=== PATIENT | male | born 1960 | race Caucasian/White ===

== ENCOUNTER 2022-08-09 13:47 | Outpatient (CLI) | payer BC, SELFPAY ==
--- NOTE | ~2022-08-09 | XR_ITS ---
EXAMINATION: XR chest 2V DATE: 08/09/2022 14:15 INDICATION: Pedal edema, cough, shortness of breath TECHNIQUE: PA and lateral views of the chest are obtained. COMPARISON: None available FINDINGS: There are minimal airspace opacities of the lung bases. No pleural effusion or pneumothorax . The cardiomediastinal silhouette is normal. There is mild thoracic spondylosis. IMPRESSION: 1. Minimal bibasilar airspace opacity, consistent with atelectasis versus pneumonia. Reviewed, dictated and finalized at location A. IMPRESSION: 1. Minimal bibasilar airspace opacity, consistent with atelectasis versus pneum onia.
[2022-08-09 14:05] LABS: Basophils Absolute Auto 0.05 K/mm3 (0.00-0.10); Basophils Percent Auto 0.5 % (0.0-1.0); Eosinophils Absolute Auto 0.23 K/mm3 (0.02-0.50); Eosinophils Percent Auto 2.3 % (1.0-6.0); Hematocrit 39.4 % (40.0-54.0); Hemoglobin 12.6 g/dL (14.0-18.0); Lymphocytes Absolute Auto 1.26 K/mm3 (1.10-4.50); Lymphocytes Percent Auto 12.8 % (18.0-42.0); Mean Corpuscular Hemoglobin 29.9 pg (27.0-31.0); Mean Corpuscular Volume 93.4 fL (78.0-102.0); Mean Platelet Volume 8.7 fl (8.7-11.0); Monocytes Percent Auto 11.2 % (2.0-11.0); Neutrophils Absolute Auto 7.1 K/mm3 (1.7-7.2); Neutrophils Percent Auto 72.2 % (50.0-70.0); Platelet Count Result 355 K/mm3 (150-420); Red Blood Count 4.22 M/mm3 (4.70-6.10); Red Cell Distribution Width 12.3 % (11.6-14.4); White Blood Count 9.9 K/mm3 (4.8-10.8)
[2022-08-09 14:27] LABS: Alanine Aminotransferase 31 U/L (16-63); Albumin Level 3.2 g/dL (3.4-5.0); Alkaline Phosphatase 81 U/L (46-116); Anion Gap 4 mmol/L (8-16); Aspartate Amino Transferase 13 U/L (15-37); Bilirubin,Total 0.2 mg/dL (0.00-1.00); Blood Urea Nitrogen 20 mg/dL (7-18); Calcium 8.8 mg/dL (8.5-10.1); Carbon Dioxide 31 mmol/L (21-32); Chloride 104 mmol/L (98-108); Estimated Glomerular Filt Rate > 60; Glucose 99 mg/dL (70-99); NT Pro B Type Natriuretic Pept 85 pg/mL (0-125); Osmolality Calculated 290 mOsm/kg (285-295); Potassium 3.9 mmol/L (3.5-5.1); Sodium 139 mmol/L (136-145); Total Protein 7.5 g/dL (6.4-8.2)
== END 2022-08-09 13:48 | disposition home or self-care (01) ==
PROVIDERS: PCP Internal Medicine; Visit Provider Internal Medicine
DX: R60.9 Edema, unspecified (principal); J18.9 Pneumonia, unspecified organism
CPT/HCPCS: 36415; 71046; 80053; 83880; 85025; 85380

== ENCOUNTER 2022-08-29 10:19 | Outpatient (CLI) | payer BC, SELFPAY ==
--- NOTE | ~2022-08-29 | XR_ITS ---
XR chest 2V DATE: 08/29/2022 11:08 INDICATION: Pneumonia follow-up TECHNIQUE: 2 views COMPARISON: 08/09/2022 2 view chest FINDINGS: Normal heart size. No hilar or mediastinal enlargement. Again noted is minimal infiltrate or atelectasis at the lung bases, stable since 08/09/2022. The lung s otherwise appear clear. No pleural effusion or pulmonary vascular congestion or pneumothorax. IMPRESSION: Minimal infiltrate or atelectasis at the lung bases, with little interval change since Reviewed, dictated and finalized at location A. IMPRESSION: Minimal infiltrate or atelectasis at the lung bases, with little in terval change since 08/09/2022
== END 2022-08-29 10:20 | disposition home or self-care (01) ==
LOC: CHSIMG 10:23
PROVIDERS: PCP Internal Medicine; Visit Provider Internal Medicine
DX: J18.9 Pneumonia, unspecified organism (principal)
CPT/HCPCS: 71046

== ENCOUNTER 2022-09-05 14:41 | Outpatient (CLI) | payer BC, SELFPAY ==
--- NOTE | ~2022-09-05 | XR_ITS ---
EXAMINATION: XR chest 2V Exam Date/Time: 09/05/2022 15:00 DOUGHNUT BATTER MIXER HISTORY: cough Comparison: 08/29/2022, 08/09/2022, 10/17/2014. RESULT: Lines, tubes, and devices: None. Lungs and pleura: Chronic streaky bilateral lower lung opacities, likely representing scar/atelectas is. No focal consolidation. Cardiomediastinal silhouette: Stable. Other: No acute osseous or upper abdominal finding. IMPRESSION: No acute cardiopulmonary process. Reviewed, dictated and finalized at location K. HNUT BATTER MIXER
== END 2022-09-05 14:42 | disposition home or self-care (01) ==
PROVIDERS: PCP Internal Medicine; Visit Provider Internal Medicine
DX: R05.9 Cough, unspecified (principal)
CPT/HCPCS: 71046

== ENCOUNTER 2022-09-07 10:43 | Outpatient (CLI) | payer BC, SELFPAY ==
--- NOTE | ~2022-09-07 | CT_ITS ---
EXAMINATION: CT diagnostic chest w con DATE: 09/07/2022 11:14 INDICATION: Cough, abnormal chest x-ray TECHNIQUE: Transaxial computed tomographic images of the chest were obtained after the administration of 75 cc of Omnipaque 350 intravenous contrast. The dose-length product (DLP) was 304.70 mGy-cm. Ite rative reconstruction was used. COMPARISON: 09/05/2022 FINDINGS: There are patchy airspace opacities of the lingula, right upper lobe, and bilateral lower l obes. No pleural effusion or pneumothorax. There are a few scattered small nodules of the lungs which measure up to 3 mm. No pathologically enlarged thoracic lymph nodes are identified. The heart size i s normal. There is moderate thoracic spondylosis. IMPRESSION: 1. Patchy airspace opacities of the lungs, consistent with mild multifocal pneumonia. 2. Small pulmonary nodules measuring up to 3 mm, likely old granulomatous disease. If the patient has no risk factors for malignancy, no further follow up is required. If there are risk factors for mal ignancy (i.e., history of smoking, asbestos or radiation exposure), consider followup CT in 12 months . Reviewed, dictated and finalized at location B. S WASHER AND CARRIER IMPRESSION: 1. Patchy airspace opacities of the lungs, consistent with mild multifocal pneu monia. 2. Small pulmonary nodules measuring up to 3 mm, likely old granulomatous disea se. If the patient has no risk factors for malignancy, no further follow up is required. If there are risk factors for malignancy (i.e., history of smoking, asbestos or radiation exposure), consider followup CT in 12 months.
== END 2022-09-07 10:44 | disposition home or self-care (01) ==
LOC: CHSIMG 10:45
PROVIDERS: PCP Internal Medicine; Visit Provider Internal Medicine
DX: R93.89 Abnormal findings on diagnostic imaging of other specified body structures (principal)
CPT/HCPCS: 71260; Q9967

== ENCOUNTER 2022-09-08 13:29 | Outpatient (CLI) | payer BC, SELFPAY ==
[2022-09-08 13:40] LABS: Hematocrit 41.7 % (40.0-54.0); Mean Corpuscular HGB Conc 31.2 g/dL (32.0-36.0); Mean Corpuscular Hemoglobin 29.1 pg (27.0-31.0); Mean Corpuscular Volume 93.5 fL (78.0-102.0); Mean Platelet Volume 9.9 fl (8.7-11.0); Platelet Count Result 215 K/mm3 (150-420); Red Blood Count 4.46 M/mm3 (4.70-6.10); Red Cell Distribution Width 12.5 % (11.6-14.4); White Blood Count 6.4 K/mm3 (4.8-10.8)
[2022-09-08 14:04] LABS: Band Neutrophils Percent 0 % (0-6); Basophils Percent Manual 0 % (0-1); Eosinophils Absolute Manual 0.25 K/mm3 (0.02-0.5); Eosinophils Percent Manual 4 % (1-6); Lymphocytes Percent Manual 25 % (18-44); Monocytes Absolute Manual 0.64 K/mm3 (0.1-0.90); Monocytes Percent Manual 10 % (3-9); Neutrophils Percent Manual 61 % (46-73); Platelet Estimate Adequate (Adequate); Total Cells Counted 100
== END 2022-09-08 13:30 | disposition home or self-care (01) ==
LOC: CHSLAB 13:30
PROVIDERS: PCP Internal Medicine; Visit Provider Internal Medicine
DX: J18.9 Pneumonia, unspecified organism (principal)
CPT/HCPCS: 36415; 85025

== ENCOUNTER 2022-09-15 15:06 | Outpatient (RCR) | payer BC, SELFPAY ==
--- NOTE | 2022-09-15 15:57 | PTOPEVAL1 ---
Assessment and note entered by JT File, PT Evaluation Information Assessment Status Evaluation Diagnosis cervical radiculopathy Onset 07/26/22 Subjective Information patient reports he was on vacation a few months ago. he reports he was coughing a lot and he had an ear infection. he reports neck thing he knew he was unable to sleep. he reports his symptoms continued to get worse. he reports ultimately he found out he had a bulging disc in the neck. he reports he has tried point of care specialist. he reports this did help. however, he continues to have pain in the neck. he reports he no longer has pain in the collar bone. he reports he has pain down the R shoulder and into the R elbow. he reports he has tingling in the pointer and middle finger. Reported Pain Level Pain Score 0: Self Report Assessment PT Clinical Summary mr. carvalho presents to skilled PT services for evaluation and treatment of cervical radiculopathy . upon examination this date, he presents with signs and symptoms consistent with a R C7 cervical radiculopathy. he presents with decreased rom, R UE radicular symptoms to the index and middle figers, and muscle tightness in the R UT. he would do well to attend skilled PT to improve his objective/functional deficits and return to his prior level functional activity performance/ quality of life. Plan of Care Interventions Electrical Stimulation,Hot Pack/Cold Pack,Manual Therapy,Mechanical Traction,Neuro Re-education, Patient/Caregiver Educati,Therapeutic Activities, Therapeutic Exercise Treatment Frequency and 2x weekly for 8 visits Duration These treatments will address the objective and functional deficits as defined above. The patient will be advanced safely and appropriately in order for the patient to progress towards his/her prior level of function. Additional exercises will be introduced and as well as a comprehensive home exercise program upon discharge, if needed, ?to ensure carryover of functional gains achieved in the clinic. This treatment plan has been reviewed and agreement upon by the patient.
== END 2022-09-27 19:00 | disposition home or self-care (01) ==
LOC: CHSPT 15:06
PROVIDERS: Visit Provider Nurse Practitioner Family
DX: M54.12 Radiculopathy, cervical region (principal)
CPT/HCPCS: 97012; 97110; 97140; 97161

== ENCOUNTER 2022-10-02 16:10 | Outpatient (CLI) | payer BC, SELFPAY ==
--- NOTE | ~2022-10-02 | XR_ITS ---
EXAMINATION: XR chest 2V 10/02/2022 16:50 INDICATION: Follow-up pneumonia PROCEDURE: 2 view chest COMPARISON: Comparison to multiple prior studies sequentially, with oldest reviewed study dated 09/29. FINDINGS: The lungs are clear. The cardiomediastinal silhouette is within normal limits. There are no pleural effusions. There is no pneumothorax suspected. IMPRESSION: 1: NO ACUTE CARDIOPULMONARY DISEASE. Reviewed, dictated and finalized at location A. FIC SUPERINTENDENT
== END 2022-10-02 16:11 | disposition home or self-care (01) ==
LOC: CHSIMG 16:12
PROVIDERS: PCP Internal Medicine; Visit Provider Internal Medicine
DX: Z09 Encounter for follow-up examination after completed treatment for conditions other than malignant neoplasm (principal); J18.9 Pneumonia, unspecified organism
CPT/HCPCS: 71046

== ENCOUNTER 2022-12-07 01:07 | Day surgery (SDC) | payer BC, SELFPAY ==
[2022-12-04 15:39] VITALS: BMI 31.0
[2022-12-07 08:33] VITALS: BP 108/78; PULSE 71; RESP 16; TEMP 36.1; O2SAT 96; BMI 30.1
[2022-12-07] MEDS: LACTATED RINGERS 1,000 ML 150 ML IV CONT (08:41)
--- NOTE | 2022-12-07 08:51 | P.PNAN_ITS ---
Anes - Initial Pre Proc Eval Procedure: Operation Date: 12/07/22 09:00 Proposed Procedures p Screening Colonoscopy - Aldair Fraire DO Date/Time: 12/07/22 08:51 Surgeon: Aldair Fraire DO Pre Op Diagnosis: neoplasm screening Patient Data Age: 61 Gender: M Height: 1.83 m Weight: 100.7 kg Last Vital Signs Temp 36.1 C L 12/07/22 08:33 Pulse 71 12/07/22 08:33 Resp 16 12/07/22 08:33 BP 108/78 12/07/22 08:33 Pulse Ox 96 12/07/22 08:33 O2 Del Method Room Air 12/07/22 08:33 Allergies Allergy/AdvReac Type Severity Reaction Status Date / Time No Known Allergies Allergy Verified 12/07/22 08:32 Home Medications Medication Instructions Recorded Confirmed Type ascorbic acid (vitamin C) 500 mg 500 mg PO DAILY 12/04/22 12/07/22 History capsule aspirin 81 mg tablet 81 mg PO DAILY 12/04/22 12/07/22 History multivitamin with minerals-folic 1 tablet PO DAILY 12/04/22 12/07/22 History acid 0.4 mg tablet omega 7-cry-chx-fish oil 1,000 mg 1 cap PO DAILY 12/04/22 12/07/22 History (120 mg-180 mg) capsule (Fish Oil) Patient hx anesthesia problems: none Family hx anesthesia problems: none Results Review: All pre-operative results and documents have been reviewed as part of the pre- operative evaluation. [facility] Social History Social History Smoking status: Former smoker Tobacco type: smokeless tobacco Alcohol intake: current Drinks per week: 6 Substance use type: does not use Living arrangements: with family Spiritual care concerns: No Anes - Eval Final PreProcedure Day of Procedure 12/07/22 08:51 Patient weight: overweight Heart: regular rate and rhythm Lungs: clear to auscultation Airway: Mallampati scale class II Neurological: alert and oriented Last oral intake: >/= 8 hours ASA classification: II Emergent: no Anesthetic plan: proceed Anesthesia type and monitoring: general GIVS and standard monitoring Results Review: All pre-operative results and documents have been reviewed as part of the pre-operative evaluation. Informed Consent: The patient's anesthetic plan and its attendant risks and benefits were discussed with the patient/family/POA. Questions were solicited and answers provided to the satisfaction of the patient/family/POA.
--- NOTE | 2022-12-07 09:16 | PM.IMHP ---
H&P: HPI History of Present Illness Date/Time: 12/07/22 09:16 Chief Complaint: screening for colorectal cancer Narrative: this is a 61-year-old man who presents for colonoscopy. His last colonoscopy was about 11 years ago. He denies any hematochezia or melena. He denies family history of colon cancer. Review of Systems Review of Systems: All systems reviewed & are unremarkable except as noted in HPI and below Constitutional: Constitutional: Denies chills, Denies fever(s), Denies headache(s) and Denies weight loss Eyes: Eyes: Denies change in vision ENT: Denies dizziness, Denies headache(s), Denies neck mass and Denies throat swelling Cardiovascular: Cardiovascular: Denies chest pain, Denies lightheadedness and Denies dyspnea Respiratory: Respiratory: Denies cough, Denies dyspnea and Denies wheezing Gastrointestinal: Gastrointestinal: Denies abdominal pain, Denies change in bowel habits, Denies nausea and Denies vomiting Genitourinary: Genitourinary: Denies hematuria and Denies dysuria Musculoskeletal: Musculoskeletal: Reports as per HPI Integumentary/Breasts: Skin/Breast: Reports as per HPI Neurologic: Denies dizziness and Denies headache(s) Allergic/Immunologic: Allergic/Immunologic: Denies throat swelling and Denies wheezing [facility] Social History Social History Smoking status: Former smoker Tobacco type: smokeless tobacco Alcohol intake: current Drinks per week: 6 Substance use type: does not use Living arrangements: with family Spiritual care concerns: No Meds Home Medications and Allergies Home Medications Medication Instructions Recorded Confirmed Type ascorbic acid (vitamin C) 500 mg 500 mg PO DAILY 12/04/22 12/07/22 History capsule aspirin 81 mg tablet 81 mg PO DAILY 12/04/22 12/07/22 History multivitamin with minerals-folic 1 tablet PO DAILY 12/04/22 12/07/22 History acid 0.4 mg tablet omega 4-ikv-arh-fish oil 1,000 mg 1 cap PO DAILY 12/04/22 12/07/22 History (120 mg-180 mg) capsule (Fish Oil) Allergies Allergy/AdvReac Type Severity Reaction Status Date / Time No Known Allergies Allergy Verified 12/07/22 08:32 Vital Signs Vital Signs - 24 hr 12/07/22 08:33 Temperature 36.1 C L Pulse Rate 71 Respiratory Rate 16 Blood Pressure 108/78 Pulse Oximetry 96 Oxygen Delivery Room Air Exam Const: General: no acute distress and alert Orientation/consciousness: patient oriented x3 HENMT: Head: normocephalic and atraumatic Ears: hearing grossly normal bilaterally Face/Nose/Sinus: Normal nares present Mouth: Yes Normal oral and palatal mucosa present Eyes: Periorbital: periorbital findings normal Sclera: sclerae normal EOM: EOMs intact bilaterally Neck: Neck: normal visual inspection, no lymphadenopathy and trachea midline Chest: Chest palpation & inspection: normal inspection of the chest Resp: Effort & Inspection: normal respiratory effort Auscultation: clear to auscultation bilaterally Cardio: Jugular venous distension: no JVD Rate: regular rate Rhythm: regular rhythm Heart sounds: S1 normal heart sound present and S2 normal heart sound present Peripheral pulses: Peripheral pulses 2+ throughout GI: Inspection: normal to inspection GI Palp: Yes Soft to palpation, No Tenderness to palpation present (GI), No Guarding due to palpation present (GI) and No Rebound tenderness present Percussion: Yes normal to percussion Auscultation: normal bowel sounds : General: Yes no CVA tenderness Back/Spine/Pelvis: Back: no CVA tenderness Neuro: General: patient oriented x3, no focal motor deficits and CN's II-XI intact bilaterally Cognition (Neuro): normal cognition Speech: normal speech Motor exam (neuro): 5/5 motor strength present throughout Extrem: General: capillary refill normal and no clubbing, cyanosis or edema Assessment and Plan Assessment and plan (1) Screening for color
[2022-12-07 09:57] VITALS: BP 95/66; PULSE 70; RESP 17; O2SAT 95
[2022-12-07 10:07] VITALS: BP 104/72; PULSE 65; RESP 20; O2SAT 95
[2022-12-07 10:17] VITALS: BP 113/79; PULSE 65; RESP 18; O2SAT 99
== END 2022-12-07 10:32 | disposition home or self-care (01) ==
PROVIDERS: PCP Internal Medicine; Visit Provider Surgery
PROC: 0DJD8ZZ Inspection of Lower Intestinal Tract, Via Natural or Artificial Opening Endoscopic (ICD-10-PCS; CPT 45378; principal; 2022-12-07 09:00)
DX: Z12.11 Encounter for screening for malignant neoplasm of colon (principal); K62.1 Rectal polyp; K57.30 Diverticulosis of large intestine without perforation or abscess without bleeding; Z79.82 Long term (current) use of aspirin; Z87.891 Personal history of nicotine dependence
CPT/HCPCS: 45380; 88305; J2704; J7120

== ENCOUNTER 2023-04-16 15:29 | Outpatient (CLI) | payer BC, SELFPAY ==
--- NOTE | ~2023-04-16 | XR_ITS ---
XR knee RT min 4V 04/16/2023 15:46 INDICATION: Right knee pain PROCEDURE: 4 views right knee COMPARISON: No prior studies for comparison. FINDINGS: Fracture, dislocation or subluxation is not identified. There is mild patellofemoral compar tment osteoarthritis. No significant joint effusion. The soft tissues appear within normal limits. N o foreign bodies are identified. IMPRESSION: 1: NO ACUTE BONE OR JOINT ABNORMALITY IDENTIFIED. Reviewed, dictated and finalized at location []
== END 2023-04-16 15:30 | disposition home or self-care (01) ==
PROVIDERS: PCP Internal Medicine; Visit Provider Internal Medicine
DX: M25.561 Pain in right knee (principal)
CPT/HCPCS: 73564

== ENCOUNTER 2023-04-21 09:04 | Outpatient (CLI) | payer BC, SELFPAY ==
--- NOTE | ~2023-04-21 | MR_ITS ---
MRI of the right knee Clinical history: Injury Technique: Coronal proton density and proton density-weighted images, sagittal proton-density and T2 fat-sat images, and axial proton-density fat-saturated images were acquired. Findings: Anterior and posterior cruciate ligaments are intact. Medial collateral ligament and the la teral collateral ligament complex are intact. Popliteus tendon is intact. There is a vertical tear through the posterior horn of the medial meniscus with possible horizontal e xtension. No lateral meniscal tear identified. There is probable mild diffuse chondral thinning throughout the knee, with extensive high-grade chond romalacia patella present. There is prominent marrow edema at the fibular head without definite fract ure. There is a probable ganglion cyst extending from the proximal tibiofibular joint, measuring up t o 2.2 cm in size. Extensor mechanism is intact. Small joint effusion present. Minimal Lakhani's cyst present. There is ed keegan of the distal semimembranosus muscle belly, consistent with low-grade muscle injury. Impression: Vertical tear of the posterior horn of the medial meniscus with possible horizontal extension. Grade 1 to mild grade 2 injury of the semimembranosus muscle belly. Marrow edema of the fibular head, likely representing bone contusion. No fracture evident. Degenerative change of the knee, worst in the patellofemoral compartment, as detailed above. Small joint effusion. 2.2 cm ganglion cyst extending from the proximal tibiofibular joint. Reviewed, dictated and finalized at [facility]. Impression: Vertical tear of the posterior horn of the medial meniscus with possible horizo ntal extension. Grade 1 to mild grade 2 injury of the semimembranosus muscle belly. Marrow edema of the fibular head, likely representing bone contusion. No fractu re evident. Degenerative change of the knee, worst in the patellofemoral compartment, as de tailed above. Small joint effusion. 2.2 cm ganglion cyst extending from the proximal tibiofibular joint.
== END 2023-04-21 09:05 | disposition home or self-care (01) ==
LOC: CHSIMG 09:05
PROVIDERS: PCP Internal Medicine; Visit Provider Internal Medicine
DX: M25.561 Pain in right knee (principal); S83.241A Other tear of medial meniscus, current injury, right knee, initial encounter; M79.89 Other specified soft tissue disorders; M25.461 Effusion, right knee; M67.461 Ganglion, right knee
CPT/HCPCS: 73721

== ENCOUNTER 2023-05-17 14:49 | Outpatient (RCR) | payer BC, SELFPAY ==
--- NOTE | 2023-05-18 07:35 | PTOPEVAL1 ---
Assessment and note entered by YINA Yuen PT Evaluation Information Assessment Status Evaluation Diagnosis R knee pain Onset 05/04/23 Subjective Information Pt reports that while riding bike in middle of February , pain started in the R knee. He reports that a few weeks later during family vacation where he was doing more activity than normal, the pain increased in the R knee. He notes he has avoided aggravating activities per doctor's orders since then such as golf, running, biking, and kneeling. He reports taking Aleve to reduce the pain, however this and rest has not resolved the issue. He reports his PCP diagnosed him with a R hamstring sprain and R medial meniscus tear in posterior horn, along with arthritis in the R knee seen in imaging. He reports increased stiffness when taking first couple of steps after sitting, but otherwise the pain is not increased throughout the day as he has been avoiding activities. He notes he has been able to start taking the stairs at work this past week. 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 He states he would like to get back to his prior level of function and return to golf and biking. Reported Pain Level Pain Score 0: Self Report Additional Pain Score Comments 3/10 pain at the worst during last few days - pain in the posterior or lateral aspect of R knee, described as a soreness Assessment PT Clinical Summary Mr. Mcgovern is a pleasant 62 y/o male who presents to physical therapy with diagnosis of R medial meniscus tear in posterior horn, R hamstring strain, and R knee arthritis. He demonstrated impairments in gait, ROM, strength, and flexibility in the LEs. Appropriate to continue skilled therapy to improve patient's pain level and function to return to activities he enjoys. Evaluation supervised by Jori Yuen DPT. Plan of Care Interventions Electrical Stimulation,Gait Training,Hot Pack/Cold Pack,Manual Therapy,Neuro Re-education,Patient/ Caregiver Educati,Therapeutic Activities, Therapeutic Exercise PT Services Indicated Yes Treatment Frequency and 2 x/week for 12 visits Duration These treatments will address the objective and functional deficits as defined above.
--- NOTE | 2023-05-18 07:35 | OPREHPOC ---
Outpatient Therapy Plan of Care This is a Multidisciplinary Plan of Care that may contain components documented by all disciplines (PT, OT, and ST.) PT Problem 1 PT Problem #1 Knowledge Deficit PT Goal 1 Goal 1. Patient to demonstrate independence with HEP to improve progress made during physical therapy. Target Visit 6 PT Problem 2 PT Problem #2 Pain PT Goal 1 Goal 1. Patient to report pain at 1/10 at worst throughout day to improve patient's tolerance to activities such as golf. 2. Patient to improve LEFS score to display 20% or less functional deficits Target Visit 12 PT Problem 3 PT Problem #3 Impaired Functional Mobil PT Goal 1 Goal 1. patient to ambulate without a limp to normalize daily activities 2. patient to perform squat with safe mechanics to be able to lift objects from floor 3. patient to return to prior level biking, golf, and other rec activities without limitations. Target Visit 12 PT Problem 4 PT Problem #4 Impaired Range of Motion PT Goal 1 Goal 1. Patient to improve R knee extension AROM to 0 degrees to improve gait pattern. 2. Patient to increase R knee flexion AROM by 5 degrees to improve ability to improve squatting and lifting to return to exercise and golf. 3. Patient to improve R hamstring length by 10 degrees to improve patient's ability to reach floor. Target Visit 12 PT Problem 5 PT Problem #5 Impaired Strength PT Goal 1 Goal 1. Patient to improve R knee flexion strength to 5 /5 to allow patient to return to biking. 2. Patient to improve R knee extension strength to 5/5 to improve ability to navigate stairs. Target Visit 12
--- NOTE | 2023-06-22 09:00 | OPREHPOC ---
Outpatient Therapy Plan of Care This is a Multidisciplinary Plan of Care that may contain components documented by all disciplines (PT, OT, and ST.) PT Problem 1 PT Problem #1 Knowledge Deficit PT Goal 1 Goal 1. Patient to demonstrate independence with HEP to improve progress made during physical therapy. Target Visit 6 Progress Met PT Problem 2 PT Problem #2 Pain PT Goal 1 Goal 1. Patient to report pain at 1/10 at worst throughout day to improve patient's tolerance to activities such as golf. 2. Patient to improve LEFS score to display 20% or less functional deficits Target Visit 12 Progress Partially Met PT Problem 3 PT Problem #3 Impaired Functional Mobil PT Goal 1 Goal 1. patient to ambulate without a limp to normalize daily activities 2. patient to perform squat with safe mechanics to be able to lift objects from floor 3. patient to return to prior level biking, golf, and other rec activities without limitations. Target Visit 12 Progress Met PT Problem 4 PT Problem #4 Impaired Range of Motion PT Goal 1 Goal 1. Patient to improve R knee extension AROM to 0 degrees to improve gait pattern. 2. Patient to increase R knee flexion AROM by 5 degrees to improve ability to improve squatting and lifting to return to exercise and golf. 3. Patient to improve R hamstring length by 10 degrees to improve patient's ability to reach floor. Target Visit 12 Progress Partially Met PT Problem 5 PT Problem #5 Impaired Strength PT Goal 1 Goal 1. Patient to improve R knee flexion strength to 5 /5 to allow patient to return to biking. 2. Patient to improve R knee extension strength to 5/5 to improve ability to navigate stairs. Target Visit 12 Progress Met
--- NOTE | 2023-06-22 09:00 | PTOPPROGNS ---
Assessment and note entered by JT File, PT Evaluation Information Assessment Status Progress Diagnosis R knee pain Onset 05/04/23 Subjective Information patient reports he feels great today. he reports he has returned to biking and golfing without pain. he reports he is wanting to go to [facility] by august and walk without pain or difficulty. Assessment PT Clinical Summary mr. carvalho presents to skilled PT services for his 10th skilled visit today. he is doing well overall , and presents today with full rom, strength, and no pain. although he is doing so well, he is nervous to DC therapy. he was educated in the plan to hold therapy, and follow up in 4 weeks. if doing well, will DC patient. he has nearly met all goals as of this date. he is ambulating without antalgia or pain, and has returned to all prior level functional home/community activities. Plan of Care Interventions Electrical Stimulation,Gait Training,Hot Pack/Cold Pack,Manual Therapy,Neuro Re-education,Patient/ Caregiver Educati,Therapeutic Activities, Therapeutic Exercise PT Services Indicated Yes Treatment Frequency and hold chart for 4 weeks then DC if patient still Duration doing well. These treatments will address the objective and functional deficits as defined above. The patient will be advanced safely and appropriately in order for the patient to progress towards his/her prior level of function. Additional exercises will be introduced and as well as a comprehensive home exercise program upon discharge, if needed, ?to ensure carryover of functional gains achieved in the clinic. This treatment plan has been reviewed and agreement upon by the patient.
== END 2023-06-21 23:59 | disposition home or self-care (01) ==
LOC: CHSPT 14:49
PROVIDERS: PCP Internal Medicine; Visit Provider Internal Medicine
DX: M25.561 Pain in right knee (principal); S83.241D Other tear of medial meniscus, current injury, right knee, subsequent encounter; M17.11 Unilateral primary osteoarthritis, right knee
CPT/HCPCS: 97110; 97112; 97150; 97161; 97530

== ENCOUNTER 2023-07-18 14:59 | Outpatient (CLI) | payer BC, SELFPAY ==
--- NOTE | ~2023-07-18 | XR_ITS ---
XR ankle RT min 3V DATE: 07/18/2023 15:13 INDICATION: Lateral right ankle swelling following blunt injury 9 weeks ago TECHNIQUE: 4 views COMPARISON: None FINDINGS: There is prominent lateral soft tissue swelling of the ankle. No fracture or dislocation of the ankle or disruption of the ankle mortise is detected. IMPRESSION: Prominent lateral soft tissue swelling Reviewed, dictated and finalized at location A.
== END 2023-07-18 15:00 | disposition home or self-care (01) ==
LOC: CHSIMG 15:01
PROVIDERS: PCP Internal Medicine; Visit Provider Internal Medicine
DX: S99.911A Unspecified injury of right ankle, initial encounter (principal); M79.89 Other specified soft tissue disorders
CPT/HCPCS: 73610

== ENCOUNTER 2025-09-04 07:45 | Outpatient (CLI) | payer BC, SELFPAY ==
--- NOTE | ~2025-09-04 | US_ITS ---
EXAMINATION: US aorta, 09/04/2025 8:00 CURRICULUM DEVELOPMENT SPECIALIST HISTORY: HIGH RISK SCREENING FOR AORTIC ANEURYSM Comparison: None Technique: Silveira-scale and color Doppler images were obtained. Findings: There is no aneurysm identified, there is no aneurysmal dilatation of the visualized proximal common iliac arteries. IMPRESSION: Unremarkable exam Reviewed, dictated and finalized at location P. ICULUM DEVELOPMENT SPECIALIST IMPRESSION: Unremarkable exam
== END 2025-09-04 07:46 | disposition home or self-care (01) ==
LOC: CHSIMG 07:48
PROVIDERS: PCP Internal Medicine; Visit Provider Internal Medicine
DX: Z13.6 Encounter for screening for cardiovascular disorders (principal)
CPT/HCPCS: 76775